=== PATIENT | female | born 1950 | race Caucasian/White ===

== ENCOUNTER 2020-11-15 08:58 | Outpatient (CLI) | payer MEDICARE, OTHER ==
[2020-11-15 15:06] LABS: BASOPHILS % (AUTO) 0.8 %; EOSINOPHILS # (AUTO) 0.1 10^3/uL (0.0-0.7); EOSINOPHILS % (AUTO) 1.1 %; HGB - HEMOGLOBIN 14.1 g/dL (12.0-16.0); LYMPHOCYTES # (AUTO) 2.4 10^3/uL (1.5-3.5); LYMPHOCYTES % (AUTO) 44.4 %; MEAN CORPUSCULAR HEMOGLOBIN 31.3 pg (27.0-31.0); MEAN CORPUSCULAR HGB CONC 31.5 g/dL (32.0-36.0); MEAN CORPUSCULAR VOLUME 99.3 fL (81.0-99.0); MEAN PLATELET VOLUME 10.9 fL (7.9-10.8); MONOCYTES # (AUTO) 0.5 10^3/uL (0.0-1.0); MONOCYTES % (AUTO) 9.2 %; NEUTROPHILS # (AUTO) 2.4 10^3/uL (1.5-6.6); NEUTROPHILS % (AUTO) 44.1 %; PLT - PLATELET COUNT 261 10^3/uL (130-450); RED BLOOD COUNT 4.51 10^6/uL (4.20-5.40); WHITE BLOOD COUNT 5.3 x10^3/uL (4.8-10.8)
[2020-11-15 15:24] LABS: BILIRUBIN,URINE NEGATIVE (NEGATIVE); GLUCOSE, URINE (UA) NEGATIVE (NEGATIVE); KETONES,URINE (UA) NEGATIVE (NEGATIVE); LEUKOCYTE ESTERASE, URINE LARGE (NEGATIVE); NITRITE,URINE NEGATIVE (NEGATIVE); OCCULT BLOOD,URINE NEGATIVE (NEGATIVE); PH,URINE 6.5 PH (5.0-7.5); PROTEIN,URINE NEGATIVE (NEGATIVE); UROBILINOGEN,URINE 0.2 (NORMAL) E.U./dL (NORMAL)
[2020-11-15 15:40] LABS: CREATININE,URINE 184.6 mg/dL; MICROALBUM/CREATININE RATIO,UR 11.4 ug/mg (<30.0); MICROALBUMIN,URINE 2.1 mg/dL (0-300.0)
[2020-11-15 15:47] LABS: CLARITY,URINE CLEAR (CLEAR); SQUAMOUS EPITHELIAL CELL,UR FEW Squamous (<= Few)
[2020-11-15 15:48] LABS: BACTERIA,URINE Many /HPF (None Seen); EPITHELIAL CELLS,UR FEW Transitional /HPF (<= Few)
[2020-11-15 15:56] LABS: ALBUMIN 4.4 g/dL (3.2-5.5); ALBUMIN/GLOBULIN RATIO 1.4 (1.0-2.2); ALKALINE PHOSPHATASE 40 IU/L (42-121); ALT ALANINE AMINOTRANSFERASE 28 IU/L (10-60); AST ASPARTATE AMINOTRANSFERASE 27 IU/L (10-42); BILIRUBIN,TOTAL 0.7 mg/dL (0.2-1.0); BUN - BLOOD UREA NITROGEN 22 mg/dL (6-20); CALCIUM 9.9 mg/dL (8.5-10.3); CARBON DIOXIDE - CO2 29 mmol/L (21-32); CHLORIDE 103 mmol/L (101-111); CHOL/HDL RATIO 2.3 (<4.4); CHOLESTEROL 211 mg/dL; CREATININE 0.7 mg/dL (0.4-1.0); GLUCOSE 112 mg/dL (70-100); HDL CHOLESTEROL 90 mg/dL; LDL CHOLESTEROL,CALCULATED 106 mg/dL; LDL/HDL RATIO 1.2 (<4.4); TOTAL PROTEIN 7.5 g/dL (6.7-8.2); VLDL CHOLESTEROL 15 mg/dL
[2020-11-15 20:24] LABS: HEMOGLOBIN A1c% 5.4 % (4.27-6.07)
== END 2020-11-15 08:59 | disposition home or self-care (01) ==
LOC: LAB.S 08:58
PROVIDERS: ATTEND Internal Medicine
DX: E78.00 Pure hypercholesterolemia, unspecified (principal); R73.01 Impaired fasting glucose; R35.0 Frequency of micturition
CPT/HCPCS: 36415; 80051; 80053; 80061; 81001; 82043; 82310; 82565; 82570; 82947; 83036; 83721; 84450; 84520; 85025; 87086